=== PATIENT | male | born 1965 | race Caucasian/White ===

== ENCOUNTER 2017-02-02 10:37 | Inpatient (IN) | payer OTHER ==
[~2017-02-02] VITALS: Ht 170.2 cm; Wt 86.2 kg
[~2017-02-02 10:37] MED LIST: PARO20TA51 PO
[2017-02-02] MEDS ORDERED: LIDOCAINE 1% 10 MG/ML, 20 ML MDV INJ ONE (10:45)
[2017-02-02 10:47] VITALS: BP_SYST 154
[2017-02-02] MEDS ORDERED: NACL 0.9% 1,000 ML IV SCH (11:14)
[2017-02-02] MEDS ORDERED: CIPROFLOXACIN LACT 400 MG/D5W 200 ML IV ONE (11:15)
[2017-02-02] MEDS ORDERED: metroNIDAZOLE 500 mg/NS 100 ML IV ONE (11:15)
[2017-02-02 11:25] LABS: BASOPHILS # (AUTO) 0.1 K/uL (0.0-0.2); BASOPHILS % (AUTO) 0.6 % (0.0-2.0); EOSINOPHILS # (AUTO) 0.2 K/uL (0.0-0.4); EOSINOPHILS % (AUTO) 1.6 % (0.0-4.0); HEMATOCRIT 50.9 % (36-54); HEMOGLOBIN 16.6 g/dL (14.0-18.0); LYMPHOCYTES # (AUTO) 2.4 K/uL (1.0-5.5); LYMPHOCYTES % (AUTO) 22.7 % (20.5-51.5); MEAN CORPUSCULAR HEMOGLOBIN 27 pg (27-31); MEAN CORPUSCULAR HGB CONC 33 % (32-36); MEAN CORPUSCULAR VOLUME 84 fL (79.0-98.0); MONOCYTES # (AUTO) 0.8 K/uL (0.0-1.0); MONOCYTES % (AUTO) 7.5 % (1.7-9.3); NEUTROPHILS # (AUTO) 6.9 K/uL (1.8-7.7); NEUTROPHILS % (AUTO) 67.6 % (40.0-70.0); PLATELET COUNT (AUTO) 245 K/uL (130-430); RED BLOOD CELL COUNT(AUTO) 6.07 MIL/uL (4.2-6.2); RED CELL DISTRIBUTION WIDTH 12.7 % (9.0-15.0); WHITE BLOOD COUNT (AUTO) 10.4 K/uL (4.8-10.8)
[2017-02-02] MEDS ORDERED: KETOROLAC TROMETHAMINE 30 MG VIAL IVP ONE (11:30)
[2017-02-02] MEDS ORDERED: MORPHINE 2 MG/ML INJ. SYRINGE IVP ONE (11:30)
[2017-02-02] MEDS ORDERED: ONDANSETRON HCL 4 MG/2 ML VIAL IVP ONE (11:30)
[2017-02-02 11:31] LABS: CALCIUM 9.7 mg/dL (8.4-11.0); CREATININE 1.05 mg/dL (0.55-1.30); POTASSIUM 4.5 mmol/L (3.5-5.1)
[2017-02-02 11:36] LABS: ALBUMIN 4.8 g/dL (3.4-4.8); TOTAL BILIRUBIN 0.8 mg/dL (0.0-1.0); TOTAL PROTEIN, SERUM 9.2 g/dL (6.4-8.3)
[2017-02-02] MEDS ORDERED: KETOROLAC TROMETHAMINE 15 MG VIAL IVP ONE (11:45)
[2017-02-02 11:56] LABS: INR 0.9 (0.80-1.20); PROTHROMBIN TIME 10.2 SECS (9.5-12.5)
[2017-02-02 12:48] VITALS: BP_SYST 120
[2017-02-02] MEDS ORDERED: KETOROLAC TROMETHAMINE 15 MG VIAL IVP PRN (13:15)
[2017-02-02] MEDS ORDERED: LR 1,000 ML IV.SOLN IV ONE (14:00)
[2017-02-02] MEDS ORDERED: PROPOFOL 200MG/ 20ML VIAL (DIPRIVAN) IV ONE (14:00)
[2017-02-02] MEDS ORDERED: KETAMINE HCL 500 MG/10 ML VIAL ONE (14:00)
[2017-02-02] MEDS ORDERED: NS IRRIG SOLN 1000 ML IR ONE (14:00)
[2017-02-02] MEDS ORDERED: fentaNYL CITRATE 250 MCG/5 ML AMP ONE (14:00)
[2017-02-02] MEDS ORDERED: SEVOFLURANE 15 MIN GAS INH ONE (14:00)
[2017-02-02] MEDS ORDERED: DEXAMETHASONE SOD PHOSPHATE 4 MG/ML VIAL ONE (14:00)
[2017-02-02] MEDS ORDERED: KETOROLAC TROMETHAMINE 30 MG VIAL ONE (14:00)
[2017-02-02] MEDS ORDERED: MIDAZOLAM HCL 5 MG/5 ML VIAL ONE (14:00)
[2017-02-02] MEDS ORDERED: ROCURONIUM BROMIDE 10 MG/ML (ZEMURON) ONE (14:00)
[2017-02-02 15:50] VITALS: BP_SYST 125
[2017-02-02] MEDS ORDERED: LR 1,000 ML IV SCH ×2 (16:00→19:23)
[2017-02-02] MEDS ORDERED: HYDROcodone/ACETAMIN 5-325 MG TAB (NORCO/ VICODIN) PO PRN (17:30)
[2017-02-02] MEDS ORDERED: ONDANSETRON HCL 4 MG/2 ML VIAL IVP PRN (17:30)
[2017-02-02] MEDS ORDERED: ACETAMINOPHEN 325 MG TABLET PO PRN (17:30)
[2017-02-02] MEDS ORDERED: MORPHINE 4 MG/ML INJ. SYRINGE IVP PRN (17:30)
[2017-02-02] MEDS ORDERED: HYDROcodone/ACETAMIN 10-325 MG TAB PO PRN (17:30)
[2017-02-02] MEDS ORDERED: MORPHINE 2 MG/ML INJ. SYRINGE IVP PRN (17:30)
[2017-02-02] MEDS ORDERED: DOCUSATE SODIUM 250 MG CAPSULE PO ONE (18:00)
[2017-02-02] MEDS ORDERED: MEPERIDINE HCL/PF 25 MG/ML DISP.SYRIN IVP PRN (19:30)
[2017-02-02] MEDS ORDERED: HYDROmorphone 2 MG/ML VIAL IVP PRN ×2 (19:30)
[2017-02-02] MEDS ORDERED: HYDROmorphone 1 MG INJ. 1 MG/ML AMPUL IVP PRN (19:30)
[2017-02-02 20:10] VITALS: BP_SYST 110
[2017-02-02] MEDS ORDERED: PARoxetine HCL 20 MG TABLET PO SCH (21:00)
[2017-02-02] MEDS: DOCUSATE SODIUM 250 MG CAPSULE PO SCH (21:49)
[2017-02-02] MEDS: metroNIDAZOLE 500 mg/NS 100 ML IV SCH (21:50)
[2017-02-02 22:00] VITALS: BP_SYST 110
[2017-02-03] VITALS (7 sets, daily range): BP systolic 96–125
[2017-02-03] MEDS: CIPROFLOXACIN LACT 400 MG/D5W 200 ML IV SCH ×2 (00:08→08:39)
[2017-02-03] MEDS: LR 1,000 ML IV SCH ×3 (00:12→06:15)
[2017-02-03] MEDS ORDERED: PROP10TA10 PO (05:07)
[2017-02-03] MEDS: metroNIDAZOLE 500 mg/NS 100 ML IV SCH ×2 (06:15→13:44)
[2017-02-03] MEDS: DOCUSATE SODIUM 250 MG CAPSULE PO SCH (08:39)
[2017-02-03] MEDS ORDERED: LACTOBACILLUS RHAMNOSUS GG 1 CAP CAPSULE PO SCH (09:00)
[2017-02-03] MEDS ORDERED: PARoxetine HCL 20 MG TABLET PO SCH (09:00)
[2017-02-03] MEDS ORDERED: BISACODYL 10 MG/SUPPOSITORY RC ONE (09:15)
== END 2017-02-03 17:08 | disposition home or self-care (01) | DRG 349 ==
LOC: SED 10:37 → SMU 11:43
PROVIDERS: ADMIT Internal Medicine; ATTEND Internal Medicine
PROC: 0DBQ0ZZ Excision of Anus, Open Approach (ICD-10-PCS; 2017-02-02)
PROC: 0D9Q00Z Drainage of Anus with Drainage Device, Open Approach (ICD-10-PCS; principal; 2017-02-02 16:30)
DX: K61.2 Anorectal abscess (principal); I10 Essential (primary) hypertension; E66.9 Obesity, unspecified; Z68.29 Body mass index [BMI] 29.0-29.9, adult; Z91.048 Other nonmedicinal substance allergy status
CPT/HCPCS: 36415; 71010; 80053; 83605; 85025; 85610-TC; 85730-TC; 87040-TC; 87070-TC; 87075-TC; 87081; 87186-TC; 93005; 96365; 96375; 99285; J0744; J1100; J1885; J2250; J2270; J2405; J2704; J3010; J3490; J7030; J7120

== ENCOUNTER 2017-04-26 17:57 | Inpatient (IN) | payer OTHER ==
[~2017-04-26] VITALS: Ht 170.2 cm; Wt 87.6 kg
[~2017-04-26 17:57] MED LIST changes: +PROP10TA10 PO
[2017-04-26 18:05] VITALS: BP_SYST 141
[2017-04-26] MEDS ORDERED: NACL 0.9% 1,000 ML IV SCH (18:34)
[2017-04-26] MEDS ORDERED: VANCOMYCIN HCL 1,000 MG in D5W 250 ML IV ONE (18:45)
[2017-04-26] MEDS ORDERED: PIPERACILLIN/TAZO 3.38 GM in D5W 50 ML IV ONE (18:45)
[2017-04-26] MEDS ORDERED: MORPHINE 4 MG/ML INJ. SYRINGE IVP ONE (18:45)
[2017-04-26] MEDS ORDERED: ONDANSETRON HCL 4 MG/2 ML VIAL IVP ONE (18:45)
[2017-04-26] MEDS ORDERED: PIPERACILLIN/TAZOBACTAM 3.375 GM/VIAL (ZOSYN) IV ONE ×3 (19:03→21:10)
[2017-04-26 19:16] LABS: BASOPHILS % (AUTO) 0.5 % (0.0-2.0); EOSINOPHILS # (AUTO) 0.2 K/uL (0.0-0.4); EOSINOPHILS % (AUTO) 2.4 % (0.0-4.0); HEMATOCRIT 46.3 % (36-54); HEMOGLOBIN 14.8 g/dL (14.0-18.0); LYMPHOCYTES # (AUTO) 3.9 K/uL (1.0-5.5); LYMPHOCYTES % (AUTO) 45.2 % (20.5-51.5); MEAN CORPUSCULAR HEMOGLOBIN 27 pg (27-31); MEAN CORPUSCULAR HGB CONC 32 % (32-36); MEAN CORPUSCULAR VOLUME 85 fL (79.0-98.0); MONOCYTES # (AUTO) 0.8 K/uL (0.0-1.0); MONOCYTES % (AUTO) 8.9 % (1.7-9.3); NEUTROPHILS # (AUTO) 3.8 K/uL (1.8-7.7); PLATELET COUNT (AUTO) 226 K/uL (130-430); RED BLOOD CELL COUNT(AUTO) 5.46 MIL/uL (4.2-6.2); RED CELL DISTRIBUTION WIDTH 12.9 % (9.0-15.0); WHITE BLOOD COUNT (AUTO) 8.7 K/uL (4.8-10.8)
[2017-04-26 19:18] LABS: CALCIUM 8.7 mg/dL (8.4-11.0); CREATININE 1.03 mg/dL (0.55-1.30); POTASSIUM 4.1 mmol/L (3.5-5.1)
[2017-04-26 19:21] LABS: PROTHROMBIN TIME 10.4 SECS (9.5-12.5)
[2017-04-26 19:22] LABS: ALBUMIN 4.3 g/dL (3.4-4.8); TOTAL BILIRUBIN 0.5 mg/dL (0.0-1.0); TOTAL PROTEIN, SERUM 7.8 g/dL (6.4-8.3)
[2017-04-26] MEDS ORDERED: VANCOMYCIN HCL 1000 MG/VIAL IV ONE (19:40)
[2017-04-26] MEDS ORDERED: ONDANSETRON HCL 4 MG/2 ML VIAL IVP PRN (20:00)
[2017-04-26] MEDS ORDERED: ACETAMINOPHEN 325 MG TABLET PO PRN (20:00)
[2017-04-26] MEDS ORDERED: KCL 20 mEq in D5NS 1000 mL 1,000 ML IV SCH (20:00)
[2017-04-26 20:40] VITALS: BP_SYST 154
[2017-04-26] MEDS ORDERED: DIPHENHYDRAMINE HCL 25 MG CAPSULE PO PRN (21:30)
[2017-04-26] MEDS: D5/0.45 NS 1,000 ML IV SCH (22:00)
[2017-04-26] MEDS: PROPRANOLOL HCL 10 MG TABLET (INDERAL) PO SCH (22:24)
[2017-04-26] MEDS: MORPHINE 4 MG/ML INJ. SYRINGE IVP PRN (23:31)
[2017-04-27] VITALS (7 sets, daily range): BP systolic 94–121
[2017-04-27] MEDS: PIPERACILLIN/TAZO 3.375 GM in NS 50 ML IV SCH ×5 (06:34→17:23)
[2017-04-27 06:35] LABS: CALCIUM 8.2 mg/dL (8.4-11.0); CREATININE 1.09 mg/dL (0.55-1.30); POTASSIUM 4.2 mmol/L (3.5-5.1)
[2017-04-27] MEDS: MORPHINE 4 MG/ML INJ. SYRINGE IVP PRN (06:42)
[2017-04-27 06:49] LABS: BASOPHILS % (AUTO) 0.4 % (0.0-2.0); EOSINOPHILS # (AUTO) 0.3 K/uL (0.0-0.4); EOSINOPHILS % (AUTO) 3.1 % (0.0-4.0); HEMATOCRIT 43.3 % (36-54); HEMOGLOBIN 14.1 g/dL (14.0-18.0); LYMPHOCYTES # (AUTO) 3.6 K/uL (1.0-5.5); LYMPHOCYTES % (AUTO) 43.4 % (20.5-51.5); MEAN CORPUSCULAR HEMOGLOBIN 28 pg (27-31); MEAN CORPUSCULAR HGB CONC 33 % (32-36); MEAN CORPUSCULAR VOLUME 85 fL (79.0-98.0); MONOCYTES # (AUTO) 0.7 K/uL (0.0-1.0); MONOCYTES % (AUTO) 8.5 % (1.7-9.3); NEUTROPHILS # (AUTO) 3.8 K/uL (1.8-7.7); NEUTROPHILS % (AUTO) 44.6 % (40.0-70.0); PLATELET COUNT (AUTO) 191 K/uL (130-430); RED BLOOD CELL COUNT(AUTO) 5.08 MIL/uL (4.2-6.2); RED CELL DISTRIBUTION WIDTH 12.8 % (9.0-15.0); WHITE BLOOD COUNT (AUTO) 8.4 K/uL (4.8-10.8)
[2017-04-27] MEDS: PARoxetine HCL 20 MG TABLET PO SCH (08:46)
[2017-04-27] MEDS: PROPRANOLOL HCL 10 MG TABLET (INDERAL) PO SCH ×2 (08:47→21:31)
[2017-04-27] MEDS: D5/0.45 NS 1,000 ML IV SCH ×2 (14:46→21:40)
[2017-04-27] MEDS ORDERED: BUPIVACAINE /EPINEPHRINE/PF 0.5% 30 ML VIAL INJ ONE (18:30)
[2017-04-27] MEDS ORDERED: ONDANSETRON HCL 4 MG/2 ML VIAL IVP ONE (18:30)
[2017-04-27] MEDS ORDERED: LR 1,000 ML IV.SOLN IV ONE (18:30)
[2017-04-27] MEDS ORDERED: fentaNYL CITRATE/PF 100 MCG/2 ML AMP IVP ONE (18:30)
[2017-04-27] MEDS ORDERED: NS IRRIG SOLN 1000 ML IR ONE (18:30)
[2017-04-27] MEDS ORDERED: CEFAZOLIN 2 GM IVPB PREMIX 50 ML IV ONE (18:30)
[2017-04-27] MEDS ORDERED: KETOROLAC TROMETHAMINE 30 MG VIAL IVP ONE (18:30)
[2017-04-27] MEDS ORDERED: PROPOFOL 200MG/ 20ML VIAL (DIPRIVAN) IV ONE (18:30)
[2017-04-27] MEDS ORDERED: MIDAZOLAM HCL 5 MG/5 ML VIAL IVP ONE (18:30)
[2017-04-27] MEDS ORDERED: SEVOFLURANE 15 MIN GAS INH ONE (18:30)
[2017-04-27] MEDS ORDERED: HYDROcodone/ACETAMIN 5-325 MG TAB (NORCO/ VICODIN) PO PRN (19:45)
[2017-04-27] MEDS ORDERED: IBUPROFEN 400 MG TABLET PO PRN (19:45)
[2017-04-27] MEDS: DOCUSATE SODIUM 100 MG CAPSULE PO SCH (21:31)
[2017-04-28] MEDS: PIPERACILLIN/TAZO 3.375 GM in NS 50 ML IV SCH ×4 (00:08→17:02)
[2017-04-28 03:59] VITALS: BP_SYST 105
[2017-04-28 08:00] VITALS: BP_SYST 117
[2017-04-28] MEDS: DOCUSATE SODIUM 100 MG CAPSULE PO SCH (09:10)
[2017-04-28] MEDS: PARoxetine HCL 20 MG TABLET PO SCH (09:10)
[2017-04-28] MEDS: PROPRANOLOL HCL 10 MG TABLET (INDERAL) PO SCH (09:11)
[2017-04-28] MEDS: D5/0.45 NS 1,000 ML IV SCH (11:28)
[2017-04-28 12:08] VITALS: BP_SYST 106
[2017-04-28] MEDS ORDERED: AMOX-426 PO (14:56)
[2017-04-28 16:09] VITALS: BP_SYST 124
[2017-04-28 16:32] VITALS: BP_SYST 124
== END 2017-04-28 17:55 | disposition home or self-care (01) | DRG 349 ==
LOC: SED 17:57 → SMU 20:14
PROVIDERS: ADMIT Internal Medicine; ATTEND Internal Medicine
PROC: 0JDC0ZZ Extraction of Pelvic Region Subcutaneous Tissue and Fascia, Open Approach (ICD-10-PCS; 2017-04-27)
PROC: 0D9Q00Z Drainage of Anus with Drainage Device, Open Approach (ICD-10-PCS; principal; 2017-04-27 18:30)
DX: K61.0 Anal abscess (principal); I10 Essential (primary) hypertension; G43.909 Migraine, unspecified, not intractable, without status migrainosus; F41.0 Panic disorder [episodic paroxysmal anxiety]; Z91.048 Other nonmedicinal substance allergy status; Z88.8 Allergy status to other drugs, medicaments and biological substances; Z88.1 Allergy status to other antibiotic agents
CPT/HCPCS: 36415; 80048; 80053; 83605; 85025; 85610-TC; 85730-TC; 87040-TC; 87070-TC; 87075-TC; 87081; 87086; 87186-TC; 96365; 96375; 99285; J0690; J1885; J2250; J2270; J2405; J2543; J2704; J3010; J3370; J3490; J7030; J7060; J7120; Q0163